=== PATIENT | female | born 1965 | race Caucasian/White ===

== ENCOUNTER → 2017-09-16 13:50 | Outpatient (CLI) | payer OTHER, SELFPAY ==
--- NOTE | 2017-09-16 13:52 | ECHOD_ITS ---
Reason For Study: PHTN Procedure This was a 2D Doppler, Color Flow transthoracic echocardiogram. Exam performed in department. Left Ventricle Normal LV size. Mild concentric left ventricular hypertrophy. Left ventricular systolic function is normal. The estimated ejection fraction is 60 %. Transmitral diastolic flow velocities suggest mild (stage 1) diastolic dysfunction (reversed pattern). No regional wall motion abnormalities noted. Right Ventricle Normal RV size. Normal systolic function. Atria Normal left atrium. Normal right atrium. Mitral Valve Normal mitral valve. Tricuspid Valve Normal tricuspid valve. Mild (1+) tricuspid valve insufficiency. Pulmonary artery systolic pressure is 28 mmHg. Aortic Valve Normal aortic valve. Trisinus/trileaflet aortic valve. Pulmonic Valve Normal pulmonic valve. Great Vessels Normal aortic root. The pulmonary artery is normal size. Normal inferior vena cava. Pericardium/Pleural No pericardial effusion. MMode/2D Measurements & Calculations LVIDd: 4.3 cm IVSd: 1.3 cm LAV(MOD-bp): 47.2 ml LVIDs: 3.0 cm LVPWd: 1.3 cm LAV(MOD-bp) Indexed: 24.6 ml/m2 RVDd: 2.6 cm FS: 29.8 % LAV(MOD-sp2): 46.9 ml LAV(MOD-sp4): 46.0 ml LA A4 area: 16.3 cm2 RA A4 area: 11.4 cm2 Doppler Measurements & Calculations MV E max ernesto: 63.7 cm/sec Lat Peak E' Ernesto: 7.0 cm/sec Med Peak E' Ernesto: 14.4 cm/sec MV A max ernesto: 81.0 cm/sec E/E' lat: 9.1 E/E' med: 4.4 MV E/A: 0.79 Ao V2 max: 115.4 cm/sec LV V1 max: 78.3 cm/sec PA V2 max: 83.7 cm/sec Ao max P.3 mmHg LV V1 max P.5 mmHg TR max ernesto: 251.7 cm/sec TR max P.7 mmHg Interpretation Summary Normal LV size. Mild concentric left ventricular hypertrophy. Left ventricular systolic function is normal. The estimated ejection fraction is 60 %. Transmitral diastolic flow velocities suggest mild (stage 1) diastolic dysfunction (reversed pattern). Ordering Physician: John Waggoner Referring Physician: Bret Galdamez MD Performed By: Diya Garcia, ERIBERTO, RVT
== END ==
PROVIDERS: Family Provider Family Medicine; PCP Family Medicine; Visit Provider Internal Medicine Cardiovascular Disease
DX: E34.0 Carcinoid syndrome (principal)
CPT/HCPCS: 93306

== ENCOUNTER → 2020-01-17 15:36 | Outpatient (CLI) | payer OTHER, SELFPAY ==
[2019-12-14 16:15] VITALS: BMI 29.9
[2020-01-17 18:08] LABS: Absolute Lymphocyte Count 2.04 X10^3/uL (0.83-4.51); Absolute Neutrophil Count 4.7 X10^3/uL (2.0-7.7); Basophil# 0.05 X10^3/uL; Basophil% 0.7 % (0-1); Eosinophil# 0.12 X10^3/uL; Eosinophils% 1.6 % (0-5); Hematocrit 41.2 % (37-47); Hemoglobin 13.7 g/dL (12.0-15.0); Lymphocyte # 2.04 X10^3/ul (4.0); Lymphocyte % 27.7 % (19-41); Mean Corp Hgb Conc 33.3 g/dL (32-36); Mean Corpuscular Hgb 30.3 pg (27.0-32.0); Mean Corpuscular Volume 91.2 fL (81-99); Mean Platelet Vol. 10.7 fl (6.2-12.0); Monocyte# 0.43 X10^3/uL; Monocyte% 5.8 % (0-10); NRBC Flagged by Analyzer 0 % (0-5); Neutrophil % 63.9 % (47-70); Platelet Count 232 K/mm3 (150-450); RBC Distribution Width CV 13.3 % (11.6-14.6); RBC Distribution Width SD 44.3 fl (35.1-43.9); Red Blood Count 4.52 M/mm3 (4.2-5.4); White Blood Count 7.4 K/mm3 (4.4-11.0)
[2020-01-17 18:47] LABS: ALB/GLOB Ratio 1.1 RATIO (0.9-2.4); AST(SGOT) 45 U/L (15-37); Alanine Aminotransfer ALT/SGPT 62 U/L (13-56); Alkaline Phosphatase 168 U/L (45-117); Anion Gap 4 (5-15); BUN 16 mg/dL (7-18); BUN/Creat Ratio 20.7 RATIO (10-20); Chloride 107 mmol/L (98-107); Creatinine, Serum 0.77 mg/dL (0.55-1.02); EST Glomerular Filtration Rate 83 mL/min (>60); Est Glom Filt Rate - Afr Amer 100 mL/min (>60); Globulin 3.5 g/dL (2.2-4.2); Glucose 177 mg/dL (74-106); LDH 196 U/L (84-246); Potassium 4.1 mmol/L (3.5-5.1); Protein, Total 7.5 g/dL (6.4-8.2); Sodium Level 140 mmol/L (136-145)
== END ==
PROVIDERS: PCP Family Medicine; Referring Provider Family Medicine
DX: C7A.019 Malignant carcinoid tumor of the small intestine, unspecified portion (principal)
CPT/HCPCS: 36415; 80053; 83615; 85025

== ENCOUNTER → 2020-03-12 16:22 | Outpatient (CLI) | payer OTHER, SELFPAY ==
[2019-12-14 16:15] VITALS: BMI 29.9
[2020-03-12 18:04] LABS: Absolute Lymphocyte Count 0.93 X10^3/uL (0.83-4.51); Absolute Neutrophil Count 3.4 X10^3/uL (2.0-7.7); Basophil# 0.03 X10^3/uL; Basophil% 0.6 % (0-1); Eosinophil# 0.14 X10^3/uL; Eosinophils% 2.9 % (0-5); Hematocrit 36.4 % (37-47); Hemoglobin 12.2 g/dL (12.0-15.0); Lymphocyte # 0.93 X10^3/ul (4.0); Lymphocyte % 19.1 % (19-41); Mean Corp Hgb Conc 33.5 g/dL (32-36); Mean Corpuscular Hgb 30.5 pg (27.0-32.0); Mean Platelet Vol. 10.3 fl (6.2-12.0); Monocyte# 0.37 X10^3/uL; Monocyte% 7.6 % (0-10); NRBC Flagged by Analyzer 0 % (0-5); Neutrophil % 69.6 % (47-70); Platelet Count 143 K/mm3 (150-450); RBC Distribution Width CV 13.9 % (11.6-14.6); RBC Distribution Width SD 45.5 fl (35.1-43.9); White Blood Count 4.9 K/mm3 (4.4-11.0)
[2020-03-12 18:48] LABS: Hemoglobin A1c 6.6 % (3.8-5.6)
[2020-03-12 18:52] LABS: AST(SGOT) 38 U/L (15-37); Alanine Aminotransfer ALT/SGPT 53 U/L (13-56); Albumin, Serum 3.7 g/dL (3.2-5.0); Alkaline Phosphatase 163 U/L (45-117); Anion Gap 5 (5-15); BUN 20 mg/dL (7-18); BUN/Creat Ratio 26.4 RATIO (10-20); Calcium,Total 8.9 mg/dL (8.5-10.1); Chloride 107 mmol/L (98-107); Cholesterol 149 mg/dL (200); Creatinine, Serum 0.76 mg/dL (0.55-1.02); EST Glomerular Filtration Rate 84 mL/min (>60); Est Glom Filt Rate - Afr Amer 102 mL/min (>60); Globulin 3.7 g/dL (2.2-4.2); Glucose 111 mg/dL (74-106); High Density Lipoprotein 41 mg/dL; LDH 201 U/L (84-246); Potassium 3.7 mmol/L (3.5-5.1); Protein, Total 7.4 g/dL (6.4-8.2); Sodium Level 140 mmol/L (136-145); Triglycerides 337 mg/dL; Very Low Density Lipoprotein 67 mg/dL (5-40)
[2020-03-12 19:57] LABS: Vitamin D,25 Hydroxy 14.3 ng/mL
== END ==
PROVIDERS: PCP Family Medicine; Referring Provider Family Medicine; Visit Provider Family Medicine
DX: E11.8 Type 2 diabetes mellitus with unspecified complications (principal); C7B.8 Other secondary neuroendocrine tumors; C7A.019 Malignant carcinoid tumor of the small intestine, unspecified portion
CPT/HCPCS: 36415; 80053; 80061; 82306; 83036; 83615; 85025

== ENCOUNTER → 2020-05-23 16:14 | Outpatient (CLI) | payer OTHER, SELFPAY ==
[2020-03-20 13:37] VITALS: BMI 28.2
[2020-05-23 17:40] LABS: Absolute Lymphocyte Count 0.65 X10^3/uL (0.83-4.51); Absolute Neutrophil Count 2.8 X10^3/uL (2.0-7.7); Basophil# 0.03 X10^3/uL; Basophil% 0.8 % (0-1); Eosinophil# 0.11 X10^3/uL; Eosinophils% 2.8 % (0-5); Hematocrit 36.9 % (37-47); Hemoglobin 12.6 g/dL (12.0-15.0); Lymphocyte # 0.65 X10^3/ul (4.0); Lymphocyte % 16.8 % (19-41); Mean Corp Hgb Conc 34.1 g/dL (32-36); Mean Corpuscular Hgb 31.6 pg (27.0-32.0); Mean Corpuscular Volume 92.5 fL (81-99); Monocyte# 0.31 X10^3/uL; NRBC Flagged by Analyzer 0 % (0-5); Neutrophil # 2.75 X10^3/uL (2.7-7.7); Neutrophil % 71.3 % (47-70); Platelet Count 160 K/mm3 (150-450); RBC Distribution Width CV 13.5 % (11.6-14.6); RBC Distribution Width SD 45.1 fl (35.1-43.9); Red Blood Count 3.99 M/mm3 (4.2-5.4); White Blood Count 3.9 K/mm3 (4.4-11.0)
[2020-05-23 18:17] LABS: ALB/GLOB Ratio 1.3 RATIO (0.9-2.4); AST(SGOT) 35 U/L (15-37); Alanine Aminotransfer ALT/SGPT 52 U/L (13-56); Albumin, Serum 4.1 g/dL (3.2-5.0); Alkaline Phosphatase 164 U/L (45-117); Anion Gap 5 (5-15); BUN 14 mg/dL (7-18); BUN/Creat Ratio 18.7 RATIO (10-20); Calcium,Total 8.8 mg/dL (8.5-10.1); Chloride 104 mmol/L (98-107); Creatinine, Serum 0.75 mg/dL (0.55-1.02); EST Glomerular Filtration Rate 85 mL/min (>60); Est Glom Filt Rate - Afr Amer 103 mL/min (>60); Globulin 3.2 g/dL (2.2-4.2); Glucose 129 mg/dL (74-106); LDH 191 U/L (84-246); Potassium 4.1 mmol/L (3.5-5.1); Protein, Total 7.3 g/dL (6.4-8.2); Sodium Level 139 mmol/L (136-145)
== END ==
PROVIDERS: PCP Family Medicine; Referring Provider Family Medicine
DX: C7B.8 Other secondary neuroendocrine tumors (principal); C7A.019 Malignant carcinoid tumor of the small intestine, unspecified portion
CPT/HCPCS: 36415; 80053; 83615; 85025

== ENCOUNTER → 2020-06-19 15:34 | Outpatient (CLI) | payer OTHER, SELFPAY ==
[2020-03-20 13:37] VITALS: BMI 28.2
[2020-06-19 17:55] LABS: Absolute Lymphocyte Count 0.49 X10^3/uL (0.83-4.51); Absolute Neutrophil Count 2.7 X10^3/uL (2.0-7.7); Basophil# 0.02 X10^3/uL; Basophil% 0.6 % (0-1); Eosinophil# 0.07 X10^3/uL; Hematocrit 34.5 % (37-47); Hemoglobin 11.6 g/dL (12.0-15.0); Lymphocyte # 0.49 X10^3/ul (4.0); Lymphocyte % 13.7 % (19-41); Mean Corp Hgb Conc 33.6 g/dL (32-36); Mean Corpuscular Hgb 31.3 pg (27.0-32.0); Mean Platelet Vol. 10.4 fl (6.2-12.0); Monocyte# 0.34 X10^3/uL; Monocyte% 9.5 % (0-10); NRBC Flagged by Analyzer 0 % (0-5); Neutrophil # 2.65 X10^3/uL (2.7-7.7); Neutrophil % 73.9 % (47-70); POSITIVE DIFFERENTIAL YES; Platelet Count 137 K/mm3 (150-450); RBC Distribution Width CV 13.8 % (11.6-14.6); RBC Distribution Width SD 46.5 fl (35.1-43.9); Red Blood Count 3.71 M/mm3 (4.2-5.4); White Blood Count 3.6 K/mm3 (4.4-11.0)
[2020-06-19 18:02] LABS: Differential Indicated SCAN CRITERIA MET
[2020-06-19 18:22] LABS: Differential Comment SCANNED
[2020-06-19 18:26] LABS: ALB/GLOB Ratio 1.2 RATIO (0.9-2.4); AST(SGOT) 28 U/L (15-37); Alanine Aminotransfer ALT/SGPT 36 U/L (13-56); Albumin, Serum 3.8 g/dL (3.2-5.0); Alkaline Phosphatase 157 U/L (45-117); Anion Gap 6 (5-15); BUN 20 mg/dL (7-18); Calcium,Total 8.7 mg/dL (8.5-10.1); Chloride 105 mmol/L (98-107); EST Glomerular Filtration Rate 79 mL/min (>60); Est Glom Filt Rate - Afr Amer 96 mL/min (>60); Globulin 3.3 g/dL (2.2-4.2); Glucose 205 mg/dL (74-106); LDH 185 U/L (84-246); Potassium 3.7 mmol/L (3.5-5.1); Protein, Total 7.1 g/dL (6.4-8.2); Sodium Level 139 mmol/L (136-145)
[2020-06-20 13:15] LABS: Pathologist Review Reviewed
== END ==
PROVIDERS: PCP Family Medicine
DX: E34.0 Carcinoid syndrome (principal)
CPT/HCPCS: 36415; 80053; 83615; 85025

== ENCOUNTER → 2020-07-19 16:14 | Outpatient (CLI) | payer OTHER, SELFPAY ==
[2020-03-20 13:37] VITALS: BMI 28.2
[2020-07-19 17:35] LABS: Absolute Lymphocyte Count 0.56 X10^3/uL (0.83-4.51); Absolute Neutrophil Count 2.8 X10^3/uL (2.0-7.7); Basophil# 0.03 X10^3/uL; Basophil% 0.8 % (0-1); Eosinophils% 2.6 % (0-5); Hematocrit 36.9 % (37-47); Hemoglobin 12.5 g/dL (12.0-15.0); Lymphocyte # 0.56 X10^3/ul (4.0); Lymphocyte % 14.4 % (19-41); Mean Corp Hgb Conc 33.9 g/dL (32-36); Mean Corpuscular Volume 94.4 fL (81-99); Mean Platelet Vol. 9.6 fl (6.2-12.0); Monocyte# 0.42 X10^3/uL; Monocyte% 10.8 % (0-10); NRBC Flagged by Analyzer 0 % (0-5); Neutrophil # 2.76 X10^3/uL (2.7-7.7); Neutrophil % 71.1 % (47-70); POSITIVE DIFFERENTIAL YES; Platelet Count 149 K/mm3 (150-450); RBC Distribution Width CV 14.1 % (11.6-14.6); RBC Distribution Width SD 47.9 fl (35.1-43.9); Red Blood Count 3.91 M/mm3 (4.2-5.4); White Blood Count 3.9 K/mm3 (4.4-11.0)
[2020-07-19 17:37] LABS: Differential Indicated SCAN CRITERIA MET
[2020-07-19 18:06] LABS: ALB/GLOB Ratio 1.1 RATIO (0.9-2.4); AST(SGOT) 52 U/L (15-37); Alanine Aminotransfer ALT/SGPT 60 U/L (13-56); Albumin, Serum 4.1 g/dL (3.2-5.0); Alkaline Phosphatase 182 U/L (45-117); Anion Gap 6 (5-15); BUN 14 mg/dL (7-18); BUN/Creat Ratio 18.7 RATIO (10-20); Calcium,Total 9.2 mg/dL (8.5-10.1); Chloride 103 mmol/L (98-107); Creatinine, Serum 0.75 mg/dL (0.55-1.02); EST Glomerular Filtration Rate 85 mL/min (>60); Est Glom Filt Rate - Afr Amer 103 mL/min (>60); Globulin 3.7 g/dL (2.2-4.2); Glucose 170 mg/dL (74-106); LDH 236 U/L (84-246); Potassium 4.3 mmol/L (3.5-5.1); Protein, Total 7.8 g/dL (6.4-8.2); Sodium Level 140 mmol/L (136-145)
[2020-07-22 14:04] LABS: Pathologist Review Reviewed
== END ==
PROVIDERS: PCP Family Medicine; Referring Provider Family Medicine; Visit Provider Family Medicine
DX: E34.0 Carcinoid syndrome (principal); C7A.8 Other malignant neuroendocrine tumors
CPT/HCPCS: 36415; 80053; 83615; 85025

== ENCOUNTER → 2020-12-05 14:44 | Outpatient (CLI) | payer OTHER, SELFPAY ==
[2020-10-29 15:27] VITALS: BMI 28.0
[2020-12-05 18:03] LABS: Absolute Lymphocyte Count 0.67 X10^3/uL (0.83-4.51); Absolute Neutrophil Count 2.7 X10^3/uL (2.0-7.7); Basophil# 0.02 X10^3/uL; Basophil% 0.5 % (0-1); Eosinophil# 0.09 X10^3/uL; Eosinophils% 2.3 % (0-5); Hematocrit 36.3 % (37-47); Hemoglobin 12.1 g/dL (12.0-15.0); Lymphocyte # 0.67 X10^3/ul (0.83-4.51); Lymphocyte % 17.4 % (19-41); Mean Corp Hgb Conc 33.3 g/dL (32-36); Mean Corpuscular Hgb 32.4 pg (27.0-32.0); Mean Corpuscular Volume 97.1 fL (81-99); Mean Platelet Vol. 10.1 fl (6.2-12.0); Monocyte# 0.34 X10^3/uL; Monocyte% 8.8 % (0-10); NRBC Flagged by Analyzer 0 % (0-5); Neutrophil # 2.72 X10^3/uL (2.7-7.7); Neutrophil % 70.7 % (47-70); Platelet Count 142 K/mm3 (150-450); RBC Distribution Width CV 13.2 % (11.6-14.6); Red Blood Count 3.74 M/mm3 (4.2-5.4); White Blood Count 3.9 K/mm3 (4.4-11.0)
[2020-12-05 18:22] LABS: ALB/GLOB Ratio 1.2 RATIO (0.9-2.4); AST(SGOT) 58 U/L (15-37); Alanine Aminotransfer ALT/SGPT 64 U/L (13-56); Albumin, Serum 4.2 g/dL (3.2-5.0); Alkaline Phosphatase 188 U/L (45-117); Anion Gap 8 (5-15); BUN 19 mg/dL (7-18); BUN/Creat Ratio 20.6 RATIO (10-20); Chloride 100 mmol/L (98-107); Creatinine, Serum 0.92 mg/dL (0.55-1.02); EST Glomerular Filtration Rate 67 mL/min (>60); Est Glom Filt Rate - Afr Amer 81 mL/min (>60); Globulin 3.4 g/dL (2.2-4.2); Glucose 234 mg/dL (74-106); LDH 223 U/L (84-246); Potassium 4.2 mmol/L (3.5-5.1); Protein, Total 7.6 g/dL (6.4-8.2); Sodium Level 136 mmol/L (136-145)
== END ==
PROVIDERS: PCP Family Medicine; Referring Provider Family Medicine; Visit Provider Family Medicine
DX: E34.0 Carcinoid syndrome (principal); C7A.8 Other malignant neuroendocrine tumors; C7A.019 Malignant carcinoid tumor of the small intestine, unspecified portion
CPT/HCPCS: 36415; 80053; 83615; 85025

== ENCOUNTER → 2021-01-09 | Outpatient (CLI) | payer OTHER, SELFPAY | END | disposition home or self-care (01) | LOC: LABSPEC 15:45 | PROVIDERS: PCP Family Medicine; Referring Provider Family Medicine; Visit Provider Family Medicine | DX: U07.1 COVID-19 (principal) | CPT/HCPCS: 87633; 87635; U0005; U0003 ==

== ENCOUNTER 2021-01-15 14:13 | Outpatient (CLI) | payer OTHER, SELFPAY ==
[2021-01-15] MEDS: 0.9% Saline Lock 10 ML Syringe IV (14:54)
[2021-01-15 14:59] VITALS: BP 149/94; PULSE 73; RESP 16; TEMP 37.6; O2SAT 98; BMI 29.0
[2021-01-15 15:30] VITALS: BP 151/82; PULSE 67; RESP 16; TEMP 37.5; O2SAT 99
[2021-01-15 16:30] VITALS: BP 151/82; PULSE 67; RESP 16; TEMP 37.4; O2SAT 99
== END 2021-01-15 16:30 | disposition home or self-care (01) ==
LOC: MS2OUT 14:13 → MS2 14:14
PROVIDERS: PCP Family Medicine; Referring Provider Nurse Practitioner Adult Health; Visit Provider Nurse Practitioner Adult Health
DX: U07.1 COVID-19 (principal)
CPT/HCPCS: J7050; M0243; A4216; Q0244

== ENCOUNTER → 2021-11-05 | Outpatient (CLI) | payer OTHER, SELFPAY ==
[2021-11-05 10:32] LABS: Hemoglobin A1c 7.2 % (3.8-5.6)
[2021-11-05 10:44] LABS: ALB/GLOB Ratio 1.1 RATIO (0.9-2.4); AST(SGOT) 36 U/L (15-37); Alanine Aminotransfer ALT/SGPT 42 U/L (13-56); Albumin, Serum 3.8 g/dL (3.2-5.0); Alkaline Phosphatase 157 U/L (45-117); Anion Gap 5 (5-15); BUN 18 mg/dL (7-18); Calcium,Total 8.8 mg/dL (8.5-10.1); Chloride 108 mmol/L (98-107); Cholesterol 133 mg/dL (200); EST Glomerular Filtration Rate 69 mL/min (>60); Est Glom Filt Rate - Afr Amer 83 mL/min (>60); Globulin 3.4 g/dL (2.2-4.2); Glucose 194 mg/dL (74-106); High Density Lipoprotein 43 mg/dL; Microalbumin,Random Urine < 5.0 mg/L (NO RANGE EST.); Protein, Total 7.2 g/dL (6.4-8.2); Sodium Level 139 mmol/L (136-145); Triglycerides 260 mg/dL; Very Low Density Lipoprotein 52 mg/dL (5-40)
== END | disposition home or self-care (01) ==
LOC: LAB 08:42
PROVIDERS: PCP Family Medicine; Visit Provider Family Medicine
DX: E11.8 Type 2 diabetes mellitus with unspecified complications (principal)
CPT/HCPCS: 36415; 80053; 80061; 82043; 82570; 83036

== ENCOUNTER 2021-11-07 06:18 | Day surgery (SDC) | payer OTHER, SELFPAY ==
--- NOTE | 2021-11-07 | COLBX_PTH ---
PATIENT: SURENDRA NEWSOME LOC: EN U#:[id number] AGE/SX: 56/F ROOM: RE11/07/[address]: Dr. Cedric Villavicencio MD : 1965 BED: DIS: 11/07/2021 SPEC #: [id number] RECD: 11/07/21 12:00 STATUS: BELÉN HINTON #: [id number] FLAVIO: 11/07/21 00:[address]: Cedric Villavicencio DEPT: SURGICAL PATHOLOGY RECD BY: Elijah Cummins ENTERED: 11/07/21 12:01 SP TYPE: COLON BX OTHR DR: Dr. Bret Galdamez MD Tissues: COLON BIOPSY Procedures: Surgery Specimen Level IV HEADER OPERATION: Colonoscopy ? open access (MAC) PRE-OP DIAGNOSIS: Screening TISSUE SUBMITTED: Random colon biopsy MICROSCOPIC DIAGNOSIS Colon, random biopsy: Fragments of colonic mucosa, no pathologic diagnosis. SJ:cayden 11/10/2021 MICROSCOPIC DESCRIPTION Slides are reviewed. GROSS DESCRIPTION Received in fixative is one container labeled with the patient's name and designated random colon biopsy. The specimen consists of multiple irregular fragments of light roland soft tissue that in aggregate measure 1.4 x 0.3 x 0.1 cm. The specimen is totally submitted in one cassette. / SJ:cayden 11/07/2021 TC:4 CPT: 51311
--- NOTE | 2021-11-07 07:09 | HP.PCM_ITS ---
[facility] - General General Date of Service: 11/07/21 Chief Complaint: Screening colonoscopy [facility] Narrative SURENDRA NEWSOME, is a 56 F who presents for screening colonoscopy. She presents via open access. She has a history however of a right hemicolectomy November 01, 2000 for metastatic carcinoid. In 2008 she had recurrent small bowel obstruction secondary carcinoid. She had resection. She has been treated at the [facility] and the [facility]. Her last scope by Dr. Renee was approximately 12 years ago. She does require Sandostatin in order to control diarrhea. She states that she does not think that her current bowel prep works very well. She has no other complaints. 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) Cardiology follow-up encounter COVID ADDISONID-19 (01/14/21) Diabetes Diabetes mellitus Dietary restriction Easy bruising Essential (primary) hypertension Excessive bleeding Fatty liver GERD (gastroesophageal reflux disease) History of echocardiogram History of stress test Hypertension Injury of head and neck Leg cramps Lightheadedness Neuroendocrine carcinoma metastatic to liver Non-smoker ROSA (obstructive sleep apnea) Overweight (BMI 25.0-29.9) Steatosis Wears contact lenses Home Medications cyanocobalamin (vitamin B-12) 1,000 mcg/mL injection solution 1,000 mcg subcut QMONTH 08/19/17 [History Last Taken Unknown] octreotide acetate 1,000 mcg/mL injection solution (Sandostatin) 1,000 mcg subcut QMONTH 08/19/17 [History Last Taken Unknown] metoprolol succinate 50 mg tablet,extended release 24 hr 50 mg PO QDAY #90 tabs 12/04/20 [Rx Last Taken Unknown] amlodipine 10 mg tablet 10 mg PO DAILY #90 tabs 06/10/21 [Rx Last Taken Unknown] lisinopril 20 mg tablet 20 mg PO BID #180 tabs 06/10/21 [Rx Last Taken Unknown] blood-glucose meter (Accu-Chek Guide Me Glucose Mtr) #1 ea 08/19/21 [Rx Last Taken Unknown] empagliflozin 25 mg tablet (Jardiance) 25 mg PO QAM #90 tabs 09/30/21 [Rx Last Taken Unknown] Accu-Chek Guide test strips (blood sugar diagnostic) #100 ea 10/01/21 [Rx Last Taken Unknown] metformin 500 mg tablet 500 mg PO TID #270 tabs 10/08/21 [Rx Last Taken Unknown] buspirone 5 mg tablet 5 mg PO BID 10/17/21 [History Last Taken Unknown] Allergy/AdvReac Type Severity Reaction Status Date / Time IV CONTRAST DYE Allergy Anaphylaxis Uncoded 11/05/21 12:19 PLASTIC TAP Allergy Rash Uncoded 11/05/21 12:19 Family History (Updated 10/17/21 @ 15:44 by Amanda De Leon) Father Diabetes CAD (coronary artery disease) Carcinoid syndrome Brother Hypertension Son CVA (cerebral vascular accident) Mother Lupus Grandfather Carcinoid syndrome Colon cancer Surgical History History of cholecystectomy History of colon surgery History of exploratory laparotomy History of hysterectomy History of left oophorectomy History of right hemicolectomy History of right oophorectomy History of tonsillectomy History of tubal ligation Social History Smoking Status: Never smoker alcohol intake: never substance use type: does not use caffeine: Yes Type: carbonated beverages, coffee and tea what type of physical activity do you participate in: walking frequency: 5-6 times per week duration: 30-45 minutes/day seatbelt use: always do you feel safe at home: Yes ROS Constitutional Constitutional: Reports systems reviewed and no addt'l complaints, except as documented Cardiovascular Cardiovascular: Denies chest pain Respiratory/Chest Respiratory/Chest: Denies shortness of breath at rest Gastrointestinal Gastrointestinal: Denies abdominal pain, change in bowel habits, hematochezia or melena Physical Exam Const alert, oriented x3 and no apparent distress General Appearance: cooperative and comfortable Eyes General Eye: normal appearance of both eyes Neck General: normal visual inspection Chest inspection of chest normal Resp Effort and Inspection: able to speak in complete sentences and symmetric chest movement Auscultation: clear to auscultation bilaterally Cardio regular rate and regular rhythm GI soft to palpation, non-tender and non-distended Extremity no calf tenderness Neuro oriented x3 Psych thought process normal Assessment & Plan Assessment/Plan (1) Encounter for screening for malignant neoplasm of colon: PLAN: The patient presents via open access today for screening colonoscopy. She is aware of the technique, benefit, risk, alternatives. She has had an opportunity to ask and have questions answered. If were able to complete her bowel prep then we will proceed as noted. Cedric Villavicencio M.D., F.A.C.S.
[2021-11-07 07:19] VITALS: BP 111/65; PULSE 64; RESP 18; TEMP 36.8; O2SAT 100; BMI 25.8
[2021-11-07 09:03] VITALS: BP 111/65; BP 98/62; PULSE 62; RESP 14; TEMP 36.7; O2SAT 100
--- NOTE | 2021-11-07 09:03 | OP.COLON_ITS ---
Patient Name: Sharron Sweet Procedure Date: 11/07/2021 8:27 AM Date of : 1965 Age: 56 Procedure: Colonoscopy Indications: Screening for colorectal malignant neoplasm Providers: Cedric Villavicencio MD Medicines: See the Anesthesia note for documentation of the administered medications Patient Profile: Last Colonoscopy: 2008. Complications: No immediate complications. Procedure: Pre-Anesthesia Assessment: - Prior to the procedure, a History and Physical was performed, and patient medications and allergies were reviewed. The patient's tolerance of previous anesthesia was also reviewed. The risks and benefits of the procedure and the sedation options and risks were discussed with the patient. All questions were answered, and informed consent was obtained. Prior Anticoagulants: The patient has taken no previous anticoagulant or antiplatelet agents. ASA Grade Assessment: II - A patient with mild systemic disease. After reviewing the risks and benefits, the patient was deemed in satisfactory condition to undergo the procedure. After I obtained informed consent, the scope was passed under direct vision. Throughout the procedure, the patient's blood pressure, pulse, and oxygen saturations were monitored continuously. The Colonoscope was introduced through the anus and advanced to the ileocolonic anastomosis. The colonoscopy was somewhat difficult due to a tortuous colon. The patient tolerated the procedure well. The quality of the bowel preparation was adequate to identify polyps. Ileocolonic anastomosis were photographed. Scope In: 8:34:32 AM Scope Withdrawal Time 0 hours 9 minutes 54 seconds Scope Out: 8:55:54 AM Total Procedure Duration Time 0 hours 21 minutes 22 seconds Findings: The digital rectal exam findings include non-thrombosed external hemorrhoids, non-thrombosed internal hemorrhoids and internal hemorrhoids (Grade I). There was evidence of a prior functional end-to-end ileo-colonic anastomosis in the distal ascending colon. This was patent and was characterized by healthy appearing mucosa. The exam was otherwise without abnormality. Biopsies for histology were taken with a cold forceps from the entire colon for evaluation of microscopic colitis. Impression: - Non-thrombosed external hemorrhoids, non-thrombosed internal hemorrhoids and internal hemorrhoids (Grade I) found on digital rectal exam. - Patent functional end-to-end ileo-colonic anastomosis, characterized by healthy appearing mucosa. - The examination was otherwise normal. - Biopsies were taken with a cold forceps from the entire colon for evaluation of microscopic colitis. Recommendation: - Discharge patient to home. - Resume previous diet. - Continue present medications. - Repeat colonoscopy in 10 years for screening purposes. - Telephone my office for pathology results in 1 week. Pt. likely has diarrhea related to carcinoid but random biopsies obtained today for path. Procedure Code(s): --- Professional --- 97860, Colonoscopy, flexible; with biopsy, single or multiple Diagnosis Code(s): --- Professional --- Z12.11, Encounter for screening for malignant neoplasm of colon K64.0, First degree hemorrhoids K64.4, Residual hemorrhoidal skin tags Z98.0, Intestinal bypass and anastomosis status CPT copyright 2017 [employer]. All rights reserved. The codes documented in this report are preliminary and upon dough catcher review may be revised to meet current compliance requirements. Cedric Villavicencio MD 11/07/2021 9:03:31 AM This report has been signed electronically. Number of Addenda: 0 Note Initiated On: 11/07/2021 8:27 AM
--- NOTE | 2021-11-07 09:04 | OP.CCLET_ITS ---
11/07/2021 Bret Galdamez [address] [place] [address] Re : Colonoscopy procedure for Sharron Zuluagabeatrisyvette Dear Dr. Galdamez This procedure was performed on Sunday, November 07, 2021. My impressions and recommendations are as follows: Impressions : - Non-thrombosed external hemorrhoids, non-thrombosed internal hemorrhoids and internal hemorrhoids (Grade I) found on digital rectal exam. - Patent functional end-to-end ileo-colonic anastomosis, characterized by healthy appearing mucosa. - The examination was otherwise normal. - Biopsies were taken with a cold forceps from the entire colon for evaluation of microscopic colitis. Recommendations : - Discharge patient to home. - Resume previous diet. - Continue present medications. - Repeat colonoscopy in 10 years for screening purposes. - Telephone my office for pathology results in 1 week. Pt. likely has diarrhea related to carcinoid but random biopsies obtained today for path. My findings are described in the full procedure note, which is enclosed. If I can be of further assistance, please feel free to contact me at Doctor phone number(s): Work: . Sincerely, Cedric Villavicencio MD 11/07/2021 9:03:31 AM This report has been signed electronically.
[2021-11-07 09:10] VITALS: BP 111/65; BP 92/61; PULSE 56; RESP 16; O2SAT 96
[2021-11-07 09:20] VITALS: BP 111/65; BP 93/61; PULSE 55; RESP 16; O2SAT 97
[2021-11-07 09:26] VITALS: BP 111/65; BP 91/62; PULSE 97; RESP 16; TEMP 36.6; O2SAT 97
[2021-11-07 09:32] VITALS: BP 111/65
[2021-11-07 11:26] LABS: Bedside Glucose 139 mg/dL (74-106)
== END 2021-11-07 09:47 | disposition home or self-care (01) ==
LOC: EN 06:20 → AC 06:22
PROVIDERS: PCP Family Medicine; Referring Provider Family Medicine; Visit Provider Surgery
PROC: 0DJD8ZZ Inspection of Lower Intestinal Tract, Via Natural or Artificial Opening Endoscopic (ICD-10-PCS; CPT 45378; principal; 2021-11-07 07:25)
DX: Z12.11 Encounter for screening for malignant neoplasm of colon (principal); C7B.02 Secondary carcinoid tumors of liver; E11.9 Type 2 diabetes mellitus without complications; I10 Essential (primary) hypertension; K64.4 Residual hemorrhoidal skin tags; K64.0 First degree hemorrhoids; E66.3 Overweight; F41.9 Anxiety disorder, unspecified; Z68.25 Body mass index [BMI] 25.0-25.9, adult; Z98.0 Intestinal bypass and anastomosis status; Z90.49 Acquired absence of other specified parts of digestive tract; Z90.710 Acquired absence of both cervix and uterus; Z90.722 Acquired absence of ovaries, bilateral; Z79.84 Long term (current) use of oral hypoglycemic drugs; Z79.899 Other long term (current) drug therapy; Z86.16 Personal history of COVID-19; Z80.0 Family history of malignant neoplasm of digestive organs
CPT/HCPCS: 45380; 82962; 88305; J7120; J2405

== ENCOUNTER → 2022-02-26 | Outpatient (CLI) | payer OTHER, SELFPAY ==
--- NOTE | 2022-02-26 14:35 | ECHOD_ITS ---
Reason For Study: MVP Procedure This was a 2D Doppler, Color Flow transthoracic echocardiogram. Exam performed in department. Left Ventricle Normal LV size. Left ventricular systolic function is normal. The estimated ejection fraction is 60 %. No regional wall motion abnormalities noted. Right Ventricle Normal RV size. Normal systolic function. Atria Normal left atrium. Normal right atrium. Mitral Valve Mild mitral valve prolapse. Trivial mitral valve insufficiency. Tricuspid Valve Normal tricuspid valve. Mild tricuspid valve insufficiency. Aortic Valve Normal aortic valve. Pulmonic Valve Normal pulmonic valve. Great Vessels Normal aortic root. The pulmonary artery is normal size. Normal inferior vena cava. Pericardium/Pleural No pericardial effusion. MMode/2D Measurements & Calculations Ao root diam: 2.5 cm LAV(MOD-sp4): 39.9 ml LVAd ap4: 22.9 cm2 LVLd ap4: 6.9 cm EDV(MOD-sp4): 65.2 ml EDV(sp4-el): 64.1 ml LVAs ap4: 12.1 cm2 LVLs ap4: 5.2 cm ESV(MOD-sp4): 24.7 ml ESV(sp4-el): 23.7 ml EF(MOD-sp4): 62.2 % EF(sp4-el): 63.1 % SV(MOD-sp4): 40.6 ml SV(sp4-el): 40.5 ml LA A4 area: 16.3 cm2 LA dimension(2D): 3.2 cm RA A4 area: 13.0 cm2 Time Measurements MV dec time: 0.18 sec Doppler Measurements & Calculations MV E max ernesto: 73.8 cm/sec Lat Peak E' Ernesto: 8.6 cm/sec Med Peak E' Ernesto: 6.3 cm/sec MV A max ernesto: 67.3 cm/sec E/E' lat: 8.6 E/E' med: 11.8 MV E/A: 1.1 MV V2 max: 81.8 cm/sec MV dec slope: 406.1 cm/sec2 Ao V2 max: 111.8 cm/sec MV max P.7 mmHg Ao max P.0 mmHg MV V2 mean: 51.2 cm/sec Ao V2 mean: 78.0 cm/sec MV mean P.2 mmHg Ao mean P.7 mmHg MV V2 VTI: 32.2 cm Ao V2 VTI: 28.9 cm LV V1 max: 78.4 cm/sec PA V2 max: 74.6 cm/sec TR max ernesto: 144.7 cm/sec LV V1 max P.5 mmHg PA V2 mean: 43.7 cm/sec TR max P.3 mmHg LV V1 mean P.3 mmHg LV V1 mean: 54.4 cm/sec LV V1 VTI: 22.8 cm ECHO/Echo Complete Interpretation Summary Normal LV size. Left ventricular systolic function is normal. The estimated ejection fraction is 60 %. Mild tricuspid valve insufficiency. Ordering Physician: John Waggoner Referring Physician: John Waggoner Performed By: Kristi Roach RCS
== END | disposition home or self-care (01) ==
LOC: CVS 14:32
PROVIDERS: PCP Family Medicine; Referring Provider Internal Medicine Cardiovascular Disease; Visit Provider Internal Medicine Cardiovascular Disease
DX: I34.1 Nonrheumatic mitral (valve) prolapse (principal); E34.0 Carcinoid syndrome; I10 Essential (primary) hypertension
CPT/HCPCS: 93306

== ENCOUNTER → 2022-10-06 | Outpatient (CLI) | payer OTHER, SELFPAY ==
--- NOTE | 2022-10-06 08:06 | BD_ITS ---
STUDY: DUAL ENERGY X-RAY ABSORPTIOMETRY / DXA REASON FOR EXAM: Female, 57 years old. Z780 TECHNIQUE: Bone Mineral Density (BMD) measurements of lumbar spine and bilateral hips were obtained. COMPARISON: None. FINDINGS: Lumbar Spine (L1-L4): g/cm2 (1.186) / T-score (1.4) / Z-score (2.6) Findings are suggestive of normal bone density with a low fracture risk. Left Femur Total: g/cm2 (0.964) / T-score (0.2) / Z-score (1.0) Left Femoral Neck: g/cm2 (0.773) / T-score (-0.7) / Z-score (0.5) Right Femur Total: g/cm2 (0.940) / T-score (0.0) / Z-score (0.8) Right Femoral Neck: g/cm2 (0.802) / T-score (-0.4) / Z-score (0.7) BD/Dexa Bone Density Study IMPRESSION: The patient is considered normal as outlined below according to [employer] Organization (WHO) criteria with a low fracture risk. Reference Information: The T-score is the number of standard deviations above or below the standard which is normal for young adults at their peak bone mineral density. The World Health Organization (WHO) interprets the T-scores as follows: Above -1 Normal bone density Between -1 and -2.5 Osteopenia Equal to / or below -2.5 Osteoporosis As a practical clinical guideline, osteopenia may be graded as follows: Mild -1 through -1.5 Moderate -1.6 through -2.0 Severe -2.1 through -2.4 The Z-score is the number of standard deviations above or below age-matched controls. A Z-score of less than -1.5 would be considered abnormal. References: 1. NIH Osteoporosis and Related Bone Diseases www osteo.org 2. International Society for Clinical Densitometry www iscd.org 3. National Osteoporosis Foundation www nof.org Electronically Signed: Jay Nunez MD at 10:21 EDT ,
== END | disposition home or self-care (01) ==
LOC: OPBD 07:55
PROVIDERS: PCP Family Medicine; Referring Provider Family Medicine; Visit Provider Family Medicine
DX: Z78.0 Asymptomatic menopausal state (principal); E89.40 Asymptomatic postprocedural ovarian failure
CPT/HCPCS: 77080

== ENCOUNTER → 2024-03-13 | Outpatient (CLI) | payer OTHER, SELFPAY ==
--- NOTE | 2024-03-13 10:40 | RAD_ITS ---
STUDY: X-RAY - LEFT HAND REASON FOR EXAM: Female, 59 years old. PAIN/POLYARTHRITIS TECHNIQUE: 3 view(s) of the hand. COMPARISON: None. FINDINGS: Normal radiocarpal articulation. Normal distal radioulnar joint. Normal visualized carpal bones. Normal carpal articulations Normal carpometacarpal articulation of the thumb. Normal second through fifth carpometacarpal joints. Normal metacarpi. Normal metacarpophalangeal joint of the thumb. Normal interphalangeal joint of the thumb. Normal proximal and distal phalanges of the thumb. Normal metacarpophalangeal joints of the second through fifth fingers. Normal proximal and distal interphalangeal joints of the second through fifth fingers. Normal phalanges of the second through fifth fingers. The soft tissue structures are unremarkable. RAD/Hand Min 3 Views IMPRESSION: Normal x-ray examination of the hand. Electronically Signed: Gaudencio Sanches MD at 9:01 EST ,
--- NOTE | 2024-03-13 10:40 | RAD_ITS ---
STUDY: X-RAY - RIGHT WRIST REASON FOR EXAM: Female, 59 years old. PAIN/POLYARTHRITIS TECHNIQUE: 3 view(s) of the wrist were obtained. COMPARISON: None. FINDINGS: Normal visualized distal radius and ulna. Normal radiocarpal articulation. Normal distal radioulnar articulation. Normal carpal bones. Normal carpal articulations. Normal carpometacarpal articulation of the thumb. Normal second through fifth carpometacarpal articulations. Normal visualized metacarpal bones. The soft tissue structures are unremarkable. RAD/Wrist min 3 Views IMPRESSION: Normal x-ray examination of the wrist. Electronically Signed: Gaudencio Sanches MD at 8:59 EST ,
--- NOTE | 2024-03-13 10:40 | RAD_ITS ---
STUDY: X-RAY - LEFT WRIST REASON FOR EXAM: Female, 59 years old. PAIN/POLYARTHRITIS TECHNIQUE: 3 view(s) of the wrist were obtained. COMPARISON: None. FINDINGS: Normal visualized distal radius and ulna. Normal radiocarpal articulation. Normal distal radioulnar articulation. Normal carpal bones. Normal carpal articulations. Normal carpometacarpal articulation of the thumb. Normal second through fifth carpometacarpal articulations. Normal visualized metacarpal bones. The soft tissue structures are unremarkable. RAD/Wrist min 3 Views IMPRESSION: Normal x-ray examination of the wrist. Electronically Signed: Gaudencio Sanches MD at 8:59 EST ,
--- NOTE | 2024-03-13 10:55 | RAD_ITS ---
STUDY: X-RAY - RIGHT HAND REASON FOR EXAM: Female, 59 years old. PAIN/POLYARTHRITIS TECHNIQUE: 3 view(s) of the hand. COMPARISON: None. FINDINGS: Normal radiocarpal articulation. Normal distal radioulnar joint. Normal visualized carpal bones. Normal carpal articulations Normal carpometacarpal articulation of the thumb. Normal second through fifth carpometacarpal joints. Normal metacarpi. Normal metacarpophalangeal joint of the thumb. Normal interphalangeal joint of the thumb. Normal proximal and distal phalanges of the thumb. Normal metacarpophalangeal joints of the second through fifth fingers. Normal proximal and distal interphalangeal joints of the second through fifth fingers. Normal phalanges of the second through fifth fingers. The soft tissue structures are unremarkable. RAD/Hand Min 3 Views IMPRESSION: Normal x-ray examination of the hand. Electronically Signed: Gaudencio Sanches MD at 9:01 EST ,
[2024-03-13 12:21] LABS: Erythrocyte Sedimentation Rate 4 mm/hr (0-30)
[2024-03-13 12:45] LABS: PTHIN 126.2 pg/mL (18.4-80.1)
[2024-03-13 13:05] LABS: CRP 3.23 mg/L (0.0-3.0)
[2024-03-14 15:09] LABS: ANTINUCLEAR ANTIBODIES DIRECT Negative (Negative); Anti-Nuclear Antibody Test Positive (.)
[2024-03-14 16:10] LABS: PROEL- A/G Ratio 1.2 (0.7-1.7); PROEL- Albumin 3.6 g/dL (2.9-4.4); PROEL- Alpha-1 Globulin 0.2 g/dL (0.0-0.4); PROEL- Alpha-2 Globulin 0.7 g/dL (0.4-1.0); PROEL- TOTAL PROTEIN 6.6 g/dL (6.0-8.5); PROEL-M-Spike Not Observed g/dL (Not Observed)
== END | disposition home or self-care (01) ==
PROVIDERS: PCP Family Medicine; Referring Provider Family Medicine; Visit Provider Family Medicine
DX: M06.4 Inflammatory polyarthropathy (principal)
CPT/HCPCS: 36415; 73110; 73130; 83970; 84165; 84550; 85652; 86038; 86140; 86431

== ENCOUNTER → 2024-04-10 | Outpatient (CLI) | payer OTHER, SELFPAY ==
[2024-04-10 19:01] LABS: PTHIN 141.7 pg/mL (18.4-80.1)
[2024-04-17 09:22] LABS: Vitamin D 1,25-Dihydroxy 35.4 pg/mL (24.8-81.5)
== END | disposition home or self-care (01) ==
PROVIDERS: PCP Family Medicine; Referring Provider Family Medicine; Visit Provider Family Medicine
DX: R79.89 Other specified abnormal findings of blood chemistry (principal); E55.9 Vitamin D deficiency, unspecified
CPT/HCPCS: 36415; 82652; 83970

== ENCOUNTER → 2024-04-20 | Outpatient (CLI) | payer OTHER, SELFPAY ==
[2024-04-20 12:06] LABS: Vitamin D,25 Hydroxy 9.1 ng/mL
[2024-04-21 14:08] LABS: Anti-Centromere B Ab <0.2 AI (0.0-0.9); Anti-Chromatin <0.2 AI (0.0-0.9); Anti-Jo <0.2 AI (0.0-0.9); Anti-Nuclear Antibody Test Positive (.); Anti-Scleroderma-70 AB <0.2 AI (0.0-0.9); Anti-dsDNA Ab <1 IU/mL (0-9); RNP Ab 0.5 AI (0.0-0.9); SJOGREN'S Anti-SS-A test < 0.2 AI (0.0-0.9); SJOGREN'S Anti-SS-B test < 0.2 AI (0.0-0.9); Smith Ab <0.2 AI (0.0-0.9)
== END | disposition home or self-care (01) ==
LOC: LAB 11:19
PROVIDERS: PCP Family Medicine; Referring Provider Family Medicine; Visit Provider Family Medicine
DX: R79.89 Other specified abnormal findings of blood chemistry (principal); E55.9 Vitamin D deficiency, unspecified
CPT/HCPCS: 82306; 86038; 86225; 86235

== ENCOUNTER → 2024-08-25 | Outpatient (CLI) | payer OTHER, SELFPAY ==
--- NOTE | 2024-08-25 13:47 | ECHOD_ITS ---
Reason For Study Reason For Study: MITRAL VALVE PROLAPSE Procedure This was a 2D Doppler, Color Flow transthoracic echocardiogram. Exam performed in department. Left Ventricle Normal LV size. Left ventricular systolic function is normal. The left ventricular ejection fraction is 65 %. No regional wall motion abnormalities noted. Right Ventricle Normal RV size. Normal systolic function. Atria Normal left atrium. Normal right atrium. Mitral Valve Normal mitral valve. Tricuspid Valve Normal tricuspid valve. Mild (1+) tricuspid valve insufficiency. Pulmonary artery systolic pressure is 29 mmHg. Aortic Valve Trisinus/trileaflet aortic valve. Pulmonic Valve Normal pulmonic valve. Great Vessels Normal aortic root. The pulmonary artery is normal size. Normal inferior vena cava. Pericardium/Pleural No pericardial effusion. MMode/2D Measurements & Calculations LVIDd: 4.4 cm IVSd: 1.0 cm Ao root diam: 3.0 cm LVIDs: 2.8 cm LVPWd: 1.0 cm RVDd: 2.7 cm FS: 36.0 % LAV(MOD-bp): 37.4 ml LVAd ap4: 25.8 cm2 SV(MOD-sp4): 45.7 ml LAV(MOD-bp) Indexed: 19.8 ml/m2 LVLd ap4: 7.7 cm SI(MOD-sp4): 24.2 ml/m2 LAV(MOD-sp2): 38.0 ml EDV(MOD-sp4): 72.2 ml LAV(MOD-sp4): 35.0 ml EDV(sp4-el): 73.1 ml LVAs ap4: 14.0 cm2 LVLs ap4: 6.5 cm ESV(MOD-sp4): 26.5 ml ESV(sp4-el): 25.7 ml EF(MOD-sp4): 63.3 % EF(sp4-el): 64.9 % SV(sp4-el): 47.4 ml LA A4 area: 15.4 cm2 LA dimension(2D): 3.5 cm RA A4 area: 13.1 cm2 TAPSE: 2.7 cm Time Measurements MV dec time: 0.32 sec Doppler Measurements & Calculations MV E max ernesto: 81.9 cm/sec Lat Peak E' Ernesto: 10.5 cm/sec Med Peak E' Ernesto: 9.4 cm/sec MV A max ernesto: 95.5 cm/sec E/E' lat: 7.8 E/E' med: 8.7 MV E/A: 0.86 Ao V2 max: 145.6 cm/sec LV V1 max: 102.5 cm/sec PA V2 max: 92.0 cm/sec Ao max P.5 mmHg LV V1 max P.2 mmHg TR max ernesto: 248.1 cm/sec TR max P.6 mmHg ECHO/Echo Complete Interpretation Summary Normal LV size. Left ventricular systolic function is normal. The left ventricular ejection fraction is 65 %. Normal tricuspid valve. Pulmonary artery systolic pressure is 29 mmHg. Mild (1+) tricuspid valve insufficiency. Compared to previous study, the left ventricular systolic function is the same. . Ordering Physician: John Waggoner Referring Physician: NEWTON JAIMES Performed By: Cecilia Lamb RDCS
== END | disposition home or self-care (01) ==
LOC: CVS 13:43
PROVIDERS: PCP Family Medicine; Referring Provider Internal Medicine Cardiovascular Disease; Visit Provider Internal Medicine Cardiovascular Disease
DX: I34.1 Nonrheumatic mitral (valve) prolapse (principal); I10 Essential (primary) hypertension
CPT/HCPCS: 93306

== ENCOUNTER → 2024-12-20 | Outpatient (CLI) | payer OTHER, SELFPAY ==
[2024-12-20 12:13] LABS: Hematocrit 38.7 % (37-47); Hemoglobin 12.9 g/dL (12.0-15.0); Immature Granulocytes Count 0.020 X10^3/uL (0.0-0.0); Mean Corp Hgb Conc 33.3 g/dL (32-36); Mean Corpuscular Volume 92.6 fL (81-99); Mean Platelet Vol. 10.6 fl (6.2-12.0); NRBC Flagged by Analyzer 0 % (0-5); Platelet Count 138 K/mm3 (150-450); RBC Distribution Width CV 13.7 % (11.6-14.6); RBC Distribution Width SD 45.5 fl (35.1-43.9); Red Blood Count 4.18 M/mm3 (4.2-5.4); White Blood Count 5.4 K/mm3 (4.4-11.0)
[2024-12-20 12:30] LABS: PTHIN 91 pg/mL (11-61)
[2024-12-20 12:54] LABS: AST(SGOT) 24 U/L (<=31); Alanine Aminotransfer ALT/SGPT 20 U/L (<=34); Albumin, Serum 4.0 g/dL (3.5-5.0); Alkaline Phosphatase 147 U/L (35-104); Anion Gap 11 (5-15); BUN 18 mg/dL (4-19); BUN/Creat Ratio 19.3 RATIO (10-20); Calcium,Total 9.0 mg/dL (7.6-11.0); Carbon Dioxide 24.8 mmol/L (21.0-32.0); Chloride 103 mmol/L (98-108); Globulin 2.7 g/dL (2.2-4.2); Glucose 252 mg/dL (70-99); Potassium 4.4 mmol/L (3.3-5.1); Vitamin D,25 Hydroxy 17.1 ng/mL (30-100)
== END | disposition home or self-care (01) ==
LOC: MFPLAB 11:00
PROVIDERS: PCP Family Medicine; Referring Provider Family Medicine; Visit Provider Family Medicine
DX: E34.00 Carcinoid syndrome, unspecified (principal)
CPT/HCPCS: 36415; 80053; 82306; 83970; 85025